=== PATIENT | female | born 1935 | race Caucasian/White ===

== ENCOUNTER 2022-05-13 11:10 | Emergency (ER) | payer MEDICAID ==
[~2022-05-13] VITALS: Ht 152.4 cm; Wt 72.0 kg
[2022-05-13 11:42] VITALS: BP 132/59
[2022-05-13] MEDS ORDERED: HYDR-4001 MT (14:29)
[2022-05-13] MEDS ORDERED: IBUP-2030 MT (14:31)
== END 2022-05-13 15:05 | disposition home or self-care (01) ==
LOC: ER 11:10
DX: M17.11 Unilateral primary osteoarthritis, right knee (principal); Z96.659 Presence of unspecified artificial knee joint
CPT/HCPCS: 73562; 99283